=== PATIENT | female | born 1975 | race Hispanic/Latino ===

== ENCOUNTER 2020-11-17 09:46 | Outpatient (CLI) | payer MEDICAID, OTHER | END 2020-11-17 09:47 | disposition home or self-care (01) | LOC: CSHLAB 09:46 | PROVIDERS: ATTEND Urology | DX: Z01.818 Encounter for other preprocedural examination (principal); Z20.822 Contact with and (suspected) exposure to COVID-19; N92.0 Excessive and frequent menstruation with regular cycle | CPT/HCPCS: 80048; 84703; 85027; 86850; 86900; 86901; 87635; 93005; 93010; U0003; U0005 ==

== ENCOUNTER 2020-11-22 05:41 | Day surgery (SDC) | payer OTHER ==
[2020-11-17 11:42] LABS: Hemoglobin 13.9 g/dL (12.0-15.5); Mean Corpuscular HGB CONC 31.9 g/dL (32.0-36.0); Mean Corpuscular Hemoglobin 30.1 pg (27.0-33.0); Mean Corpuscular Volume 94.4 fl (81.6-98.3); Mean Platelet Volume 10.4 fl (7.4-10.4); Platelet Count 363 10x3/uL (150-450); RBC Distribution Width 13.2 % (11.5-14.5); Red Blood Cell (RBC) Count 4.62 10x6/uL (3.90-5.03); White Blood Cell (WBC) Count 9.5 10x3/uL (3.5-10.5)
[2020-11-17 11:52] LABS: BHCG - Serum Negative (NEGATIVE); Pregs Control Background? CLEAR/WHITE (CLR/WHITE); Pregs Control Bar Appear? YES (CONTROL BAR)
[2020-11-17 11:54] LABS: Anion Gap 14 mmol/L (10-20); BUN (Urea Nitrogen) 10 mg/dL (7.0-18.7); Calc. Creatinine Clearance 0 mL/min (70-130); Calcium 9.2 mg/dL (7.8-10.44); Carbon Dioxide 27 mmol/L (22-29); Chloride 104 mmol/L (98-107); Glucose 109 mg/dL (70-105); Potassium 4.4 mmol/L (3.5-5.1); Sodium 141 mmol/L (136-145)
[2020-11-17 19:16] LABS: SARS-CoV-2 PCR by NAA Not Detected (NotDetected)
[2020-11-21 13:43] VITALS: BMI 47.5
[2020-11-22] MEDS ORDERED: Gabapentin 300 MG CAP ONE (06:20)
[2020-11-22] MEDS ORDERED: Lidocaine 1% MPF 2 ML VIAL ONE (06:21)
[2020-11-22] MEDS ORDERED: CeleCOXIB 100 MG CAP ONE (06:21)
[2020-11-22] MEDS ORDERED: Famotidine/PF 20 mg/2ml Vial ONE (06:21)
[2020-11-22] MEDS ORDERED: EPINEPHrine 1 MG/ML AMP ONE (06:33)
[2020-11-22] MEDS ORDERED: Bupivacaine PF 0.5% 30 ML VIAL ONE (06:34)
[2020-11-22] MEDS ORDERED: Fentanyl 100 MCG/2 ML VIAL ONE ×2 (06:39→08:07)
[2020-11-22] MEDS ORDERED: PROPOFOL 20 ML ONE (06:39)
[2020-11-22] MEDS ORDERED: Dexamethasone 20 MG/5 ML VIAL ONE (06:46)
[2020-11-22] MEDS ORDERED: Lidocaine 2% PF 5 ML VIAL ONE (06:46)
[2020-11-22] MEDS ORDERED: Rocuronium Bromide 10 MG/ML (10ML VIAL) ONE (06:46)
[2020-11-22] MEDS ORDERED: Ondansetron PF 4 MG/2 ML Vial ONE (06:46)
[2020-11-22] MEDS ORDERED: Midazolam HCl 2 mg/2 ml Vial ONE (07:04)
[2020-11-22] MEDS ORDERED: Scopolamine 1.5 mg/72 hour Patch ONE (07:04)
[2020-11-22] MEDS ORDERED: diphenhydrAMINE 50 MG/ML VIAL ONE (07:56)
[2020-11-22] MEDS ORDERED: PHENYLEPHRINE-NS 100 MCG/ML 10 ML SYRINGE ONE (08:41)
[2020-11-22] MEDS ORDERED: Glycopyrrolate 0.2 MG/ML 5 ML SYRINGE ONE (09:06)
[2020-11-22] MEDS ORDERED: HYDROcodone/Acetaminophen 5/325 mg Tablet PO PRN (09:20)
[2020-11-22] MEDS ORDERED: Promethazine HCl 25 MG/ML VIAL IM PRN (09:20)
[2020-11-22] MEDS ORDERED: traMADol HCl 50 MG TAB PO PRN (09:20)
[2020-11-22] MEDS ORDERED: Zolpidem Tartrate 5 MG TAB PO PRN (09:20)
[2020-11-22] MEDS ORDERED: diphenhydrAMINE 25 MG CAP PO PRN (09:20)
[2020-11-22] MEDS ORDERED: Bisacodyl 10 MG SUPP PR PRN (09:20)
[2020-11-22] MEDS ORDERED: Simethicone Chewable 80 MG TAB PO PRN (09:20)
[2020-11-22] MEDS ORDERED: Morphine 4 MG/ML VIAL SLOW IVP PRN (09:20)
[2020-11-22] MEDS ORDERED: Ondansetron PF 4 MG/2 ML Vial IVP PRN (09:20)
[2020-11-22] MEDS ORDERED: Ventolin HFA Inhaler 60 PUFF INHALER INH PRN (09:23)
[2020-11-22] MEDS: Ketorolac Tromethamine 30 MG/ML VIAL IVP SCH ×2 (11:41→18:21)
[2020-11-22] MEDS: Sodium Chloride 0.9% 1,000 ML IV SCH ×2 (12:57→20:48)
[2020-11-22] MEDS: HYDROcodone/Acetaminophen 5/325 mg Tablet PO PRN (18:22)
[2020-11-22] MEDS ORDERED: Fluticasone Propionate Nasal Spray 16 gm Bottle NASAL SCH (21:00)
[2020-11-22] MEDS ORDERED: Atorvastatin Calcium 40 MG TAB PO SCH (21:00)
[2020-11-23] MEDS: Ketorolac Tromethamine 30 MG/ML VIAL IVP SCH (00:51)
[2020-11-23] MEDS: Sodium Chloride 0.9% 1,000 ML IV SCH ×2 (04:23→08:53)
[2020-11-23] MEDS ORDERED: Ibuprofen 800 MG TAB PO SCH (06:00)
[2020-11-23 07:43] LABS: Hemoglobin 11.2 g/dL (12.0-15.5); Mean Corpuscular HGB CONC 32.6 g/dL (32.0-36.0); Mean Corpuscular Hemoglobin 30.2 pg (27.0-33.0); Mean Corpuscular Volume 92.7 fl (81.6-98.3); Mean Platelet Volume 10.8 fl (7.4-10.4); Platelet Count 278 10x3/uL (150-450); RBC Distribution Width 13.4 % (11.5-14.5); Red Blood Cell (RBC) Count 3.71 10x6/uL (3.90-5.03); White Blood Cell (WBC) Count 12.6 10x3/uL (3.5-10.5)
[2020-11-23 07:52] VITALS: BP 137/78; TEMP 98
[2020-11-23] MEDS ORDERED: Cholecalciferol 1,000 UNITS (25 MCG) TAB PO SCH (09:00)
[2020-11-23] MEDS ORDERED: Loratadine 10 MG TAB PO SCH (09:00)
[2020-11-23] MEDS ORDERED: Lisinopril 10 MG TAB PO SCH ×2 (09:00)
[2020-11-23] MEDS: HYDROcodone/Acetaminophen 5/325 mg Tablet PO PRN (09:10)
== END 2020-11-23 09:35 | disposition home or self-care (01) ==
LOC: CSHSDC 05:41 → CSHPED 10:45 → CSHSDC 11-23 09:35
PROVIDERS: ATTEND Obstetrics & Gynecology
PROC: 0UT74ZZ Resection of Bilateral Fallopian Tubes, Percutaneous Endoscopic Approach (ICD-10-PCS; principal; 2020-11-22)
PROC: 0UT94ZZ Resection of Uterus, Percutaneous Endoscopic Approach (ICD-10-PCS; principal; 2020-11-22)
DX: N80.0 Endometriosis of uterus (principal); N73.6 Female pelvic peritoneal adhesions (postinfective); I10 Essential (primary) hypertension; K21.9 Gastro-esophageal reflux disease without esophagitis; E66.9 Obesity, unspecified; Z68.42 Body mass index [BMI] 45.0-49.9, adult; Z87.891 Personal history of nicotine dependence; Z79.899 Other long term (current) drug therapy; Z88.8 Allergy status to other drugs, medicaments and biological substances; Z20.822 Contact with and (suspected) exposure to COVID-19
CPT/HCPCS: 36415; 80048; 84703; 85027; 86850; 86900; 86901; 87635; 88307; J0171; J0690; J1100; J1200; J1885; J2001; J2250; J2405; J2704; J3010; S0020; S0028; U0003; U0005